=== PATIENT | female | born 1965 | race Caucasian/White ===

== ENCOUNTER 2022-01-29 18:27 | Emergency (ER) | payer OTHER, SELFPAY ==
[2022-01-29 18:39] VITALS: BP 116/69; PULSE 98; RESP 16; TEMP 37.3; O2SAT 98
--- NOTE | 2022-01-29 18:59 | ED.EAR ---
HPI - Ear Problem General Chief complaint: Ear Stated complaint: Ear pain Time Seen by Provider: 01/29/22 18:50 Source: patient, RN notes reviewed and old records reviewed Mode of arrival: ambulatory Limitations: no limitations History of Present Illness HPI Narrative: 56-year-old female who presents to [facility] care with complaints of some cough, right ear pain, some nasal congestion,she had her negative COVID yesterday she reports. Patient reports that she has been taking Ibuprofen for her discomfort rates her pain 6/10 and aching. Patient states history of some past ear infection. Location: right ear Duration: constant Severity: moderate Discharge from ear: Reports no Treatment prior to arrival: oral analgesic Related Data Home Medications Medication Instructions Recorded Confirmed atorvastatin 20 mg tablet 20 mg PO DAILY 01/29/22 01/29/22 cholecalciferol (vitamin D3) 125 125 mcg PO DAILY 01/29/22 01/29/22 mcg (5,000 unit) tablet (Vitamin D3) cyanocobalamin (vitamin B-12) 500 500 mcg PO DAILY 01/29/22 01/29/22 mcg tablet metformin 500 mg tablet,extended 1,000 mg PO DAILY 01/29/22 01/29/22 release 24 hr Allergies Allergy/AdvReac Type Severity Reaction Status Date / Time amitriptyline Allergy Unknown Rash Unverified 01/29/22 18:48 codeine Allergy Unknown Rash Unverified 01/29/22 18:48 morphine Allergy Unknown Vomiting Unverified 01/29/22 18:48 perphenazine Allergy Unknown Rash Unverified 01/29/22 18:48 Review of Systems Review of Systems: CONSTITUTIONAL: Denies malaise, chills, sweats, or fever. EYES: Denies visual changes, redness, or discharge. ENT: Reports rhinorrhea, congestion,no sinus pain, right ear otalgia and sore throat. CARDIOVASCULAR: Denies chest pain, palpitations, or edema. RESPIRATORY: Reports cough.? Denies dyspnea. GASTROINTESTINAL: Denies abdominal pain, nausea, vomiting, diarrhea SKIN: Denies rash or itching. MUSCULOSKELETAL: Denies myalgia. NEUROLOGIC: Denies headache. All systems reviewed & are unremarkable except as noted in HPI and below PMFSH Past Medical History Medical History (Updated 01/29/22 @ 20:14 by Ester Aldridge NP) Breast cancer Carpal tunnel syndrome on both sides Diabetes Hypertension Surgical History Surgical History (Updated 01/29/22 @ 20:17 by Ester Aldridge NP) H/O tubal ligation History of cholecystectomy History of parathyroidectomy Social History Social History (Updated 01/29/22 @ 20:16 by Ester Aldridge NP) Smoking status: Never smoker Alcohol intake: unknown Substance use: unknown Living arrangements: with family Gender identity (if verbalized by the patient): Female Comments At time of signature, agree with nursing past medical, surgical, social and family history. There is no relevant family history pertinent to the presenting complaint Exam Narrative: GENERAL: Well-appearing, well-nourished, and in no acute distress. HEAD: Normocephalic EYES: PERRLA, conjunctivae clear ENT: Nares clear, turbinates edematous and erythematous, clear discharge. Mucous membranes moist. Right TM red with ear canal red and excoriated,:Left TM normal with good light reflex; no tragal tenderness. Oropharynx erythematous without lesions. Tonsils not enlarged and without exudate, no drooling, no hoarseness, no trismus, uvula midline. NECK: Supple. No lymphadenopathy CHEST: Clear to auscultation, breath sounds equal. No wheezing, rhonchi, rales, or stridor. No respiratory distress, speaks in full sentences.SAO2 98% on room air HEART: Regular rate and rhythm. No murmur heard. SKIN: Warm, dry, no rash. NEURO: Alert and oriented x3. PSYCH: Normal mood and affect Course Course Emergency Course: Patient is aware of diagnosis, understands and agrees to treatment plan.? Anticipatory guidance given.? Patient agrees to follow-up as directed and is aware of reasons to seek care at the emergency department. Po
== END 2022-01-29 19:10 | disposition home or self-care (01) ==
PROVIDERS: Emergency Provider Registered Nurse
DX: H65.01 Acute serous otitis media, right ear (principal); H60.501 Unspecified acute noninfective otitis externa, right ear; E11.9 Type 2 diabetes mellitus without complications; I10 Essential (primary) hypertension; Z85.3 Personal history of malignant neoplasm of breast
CPT/HCPCS: 99203; G0463

== ENCOUNTER 2022-05-26 14:54 | Emergency (ER) | payer OTHER, SELFPAY ==
--- NOTE | 2022-05-26 14:56 | ED.URI ---
HPI - URI/Sore Throat General Chief Complaint: Upper Respiratory Infection Stated Complaint: throat ears and sinus Time Seen by Provider: 05/26/22 14:57 Source: patient and RN notes reviewed History of Present Illness HPI Narrative: Patient is a 56-year-old female who presents to the Urgent Care with complaints of sinus congestion, cough, sore throat, ear pain for the last 7 or 8 days. Patient states that the cough started yesterday. She has been taking Tylenol without any other [id number] medication for her symptoms. Denies any fevers or known exposures. Patient was treated with antibiotics and November, December and January. Patient has not followed up with an ENT. No other acute complaints. No acute distress noted. Patient aware of the plan of care. Some parts of this dictation were generated by voice recognition software and may contain typographical and/or grammatical inaccuracies. Related Data Home Medications Medication Instructions Recorded Confirmed atorvastatin 20 mg tablet 20 mg PO DAILY 01/29/22 05/26/22 cholecalciferol (vitamin D3) 125 125 mcg PO DAILY 01/29/22 05/26/22 mcg (5,000 unit) tablet (Vitamin D3) cyanocobalamin (vitamin B-12) 500 500 mcg PO DAILY 01/29/22 05/26/22 mcg tablet metformin 500 mg tablet,extended 1,000 mg PO DAILY 01/29/22 05/26/22 release 24 hr Allergies Allergy/AdvReac Type Severity Reaction Status Date / Time amitriptyline Allergy Unknown Rash Unverified 01/29/22 18:48 codeine Allergy Unknown Rash Unverified 01/29/22 18:48 morphine Allergy Unknown Vomiting Unverified 01/29/22 18:48 perphenazine Allergy Unknown Rash Unverified 01/29/22 18:48 adhesive tape Allergy Rash Verified 05/26/22 15:20 latex Allergy Rash Verified 05/26/22 15:20 amoxicillin [From Augmentin] AdvReac Diarrhea Verified 05/26/22 15:20 clavulanic acid AdvReac Diarrhea Verified 05/26/22 15:20 [From Augmentin] Review of Systems Review of Systems: CONSTITUTIONAL: Denies fever, chills, or sweats. EYES: Denies visual changes, redness, or discharge. ENT: Reports sinus congestion/pressure, otalgia, postnasal drainage CARDIOVASCULAR: Denies chest pain, palpitations, or edema. RESPIRATORY: reports of cough without dyspnea GASTROINTESTINAL: Denies abdominal pain, nausea, vomiting, or diarrhea. GENITOURINARY: Denies dysuria or hematuria. SKIN: Denies rash or itching. MUSCULOSKELETAL: Denies back pain, joint pain, or myalgia. NEUROLOGIC: Denies headache, numbness, or weakness. All other systems reviewed are negative, except as documented in HPI. [facility] Past Medical History Medical History (Updated 05/26/22 @ 15:28 by ZAY Ramos) Breast cancer Carpal tunnel syndrome on both sides Diabetes Hypertension Surgical History Surgical History (Updated 01/29/22 @ 20:17 by Ester Aldridge NP) H/O tubal ligation History of cholecystectomy History of parathyroidectomy Social History Social History (Updated 01/29/22 @ 20:16 by Ester Aldridge NP) Smoking status: Never smoker Alcohol intake: unknown Substance use: unknown Living arrangements: with family Gender identity (if verbalized by the patient): Female Comments At the time of my signature, I reviewed and agree with the nursing past medical, surgical, social, and family history. There is no relevant family history pertinent to the patient complaint. Exam Narrative: GENERAL: This is a well-nourished, well-developed patient, in no apparent distress. HEAD: normocephalic, atraumatic. frontal sinus tenderness EYES: PERRL. Sclera clear/white. Vision is grossly intact. EARS: External ears normal, auditory canals clear and without drainage, TMs normal without perforation. Hearing grossly intact. NOSE: External nose normal with no obvious nasal discharge, nares without redness, clear rhinorrhea. THROAT: Mucous membranes moist, posterior pharynx clear. mild postnasal drainage NECK: Neck supple, non-tender wit
[2022-05-26 15:06] VITALS: BP 112/57; PULSE 96; RESP 20; TEMP 37; O2SAT 97
== END 2022-05-26 16:00 | disposition home or self-care (01) ==
PROVIDERS: Emergency Provider Nurse Practitioner Family
DX: J32.9 Chronic sinusitis, unspecified (principal); E11.9 Type 2 diabetes mellitus without complications; I10 Essential (primary) hypertension; Z85.3 Personal history of malignant neoplasm of breast; Z79.84 Long term (current) use of oral hypoglycemic drugs
CPT/HCPCS: 87081; 87880; 99213; G0463

== ENCOUNTER 2022-08-24 08:54 | Emergency (ER) | payer MEDICARE, MEDICAID, SELFPAY ==
[2022-08-24 09:06] VITALS: BP 132/80; PULSE 110; RESP 20; TEMP 37.4; O2SAT 97
[2022-08-24 09:26] LABS: Glucose Point of Care 169 mg/dl (65-105)
--- NOTE | 2022-08-24 09:48 | ED.GENADULT ---
HPI - General Adult General Chief complaint: Urogenital-Female Stated complaint: poss uti Source: patient Mode of arrival: ambulatory Limitations: no limitations History of Present Illness HPI narrative: Patient presents for evaluation of urinary symptoms. Symptoms include urinary frequency and some suprapubic pressure. Symptom onset yesterday. She has a planned cataract surgery of the right eye and wants to ensure she does not have a urinary tract infection prior to the time of surgery. She denies any dysuria, hematuria, low back pain fever, chills, nausea, vomiting, vaginal bleeding or discharge.. She is diabetic. She is compliant with metformin Jardiance. Home blood sugars usually run in the 120s. Related Data Home Medications Medication Instructions Recorded Confirmed atorvastatin 20 mg tablet 20 mg PO DAILY 01/29/22 08/24/22 cholecalciferol (vitamin D3) 125 125 mcg PO DAILY 01/29/22 08/24/22 mcg (5,000 unit) tablet (Vitamin D3) cyanocobalamin (vitamin B-12) 500 500 mcg PO DAILY 01/29/22 08/24/22 mcg tablet metformin 500 mg tablet,extended 1,000 mg PO DAILY 01/29/22 08/24/22 release 24 hr ketorolac 0.5 % eye drops 1 drp ophthalmic (eye) DIRECTED 08/24/22 08/24/22 moxifloxacin 0.5 % eye drops 1 drp ophthalmic (eye) DIRECTED 08/24/22 08/24/22 prednisolone acetate 1 % eye 1 drp ophthalmic (eye) DIRECTED 08/24/22 08/24/22 drops,suspension Allergies Allergy/AdvReac Type Severity Reaction Status Date / Time amitriptyline Allergy Unknown Rash Verified 08/24/22 09:29 codeine Allergy Unknown Rash Verified 08/24/22 09:29 morphine Allergy Unknown Vomiting Verified 08/24/22 09:29 perphenazine Allergy Unknown Rash Verified 08/24/22 09:29 adhesive tape Allergy Rash Verified 08/24/22 09:29 latex Allergy Rash Verified 08/24/22 09:29 amoxicillin [From Augmentin] AdvReac Diarrhea Verified 08/24/22 09:29 clavulanic acid AdvReac Diarrhea Verified 08/24/22 09:29 [From Augmentin] Review of Systems Review of Systems: CONSTITUTIONAL: Denies fever, chills, or sweats. EYES: Denies visual changes, redness, or discharge. ENT: Denies rhinorrhea, congestion, sore throat, or otalgia. CARDIOVASCULAR: Denies chest pain, palpitations, or edema. RESPIRATORY: Denies cough or dyspnea. GASTROINTESTINAL: Denies abdominal pain, nausea, vomiting, or diarrhea. GENITOURINARY: Reports urinary frequency and suprapubic pressure. Denies hematuria, dysuria, vaginal bleeding or discharge. SKIN: Denies rash or itching. MUSCULOSKELETAL: Denies back pain, joint pain, or myalgia. NEUROLOGIC: Denies headache, numbness, dizziness, or weakness. PSYCHIATRIC: Denies anxiety or depression. [facility] Past Medical History Medical History (Updated 08/24/22 @ 10:05 by Ag Hector, LEAD GAME DESIGNER, ) Breast cancer Carpal tunnel syndrome on both sides Diabetes Hypertension Surgical History Surgical History H/O tubal ligation History of breast surgery History of cholecystectomy History of hysterectomy History of parathyroidectomy Family History Family History Mother Family history non-contributory Social History Social History Smoking status: Former smoker Alcohol intake: unknown Substance use: unknown Living arrangements: with family Gender identity (if verbalized by the patient): Female Spiritual care concerns: No Exam Narrative: GENERAL: Well-appearing, well-nourished, and in no acute distress. HEAD: Normocephalic, atraumatic. EYES: PERRLA and EOMI. ENT: Nares clear, no rhinorrhea or epistaxis. Mucous membranes moist. Oropharynx without tonsillar hypertrophy exudate or other lesions. Bilateral TMs pearly robles nonbulging NECK: Supple. No adenopathy or masses. No carotid bruits or JVD CHEST: Clear to auscultation. No respirator
== END 2022-08-24 09:49 | disposition home or self-care (01) ==
PROVIDERS: Emergency Provider Nurse Practitioner
DX: R35.0 Frequency of micturition (principal); Z87.891 Personal history of nicotine dependence; E11.9 Type 2 diabetes mellitus without complications; I10 Essential (primary) hypertension; Z85.3 Personal history of malignant neoplasm of breast; Z90.89 Acquired absence of other organs
CPT/HCPCS: 81003; 82948; 87086; 87088; 99213; G0463

== ENCOUNTER 2022-12-06 13:48 | Emergency (ER) | payer MEDICARE, MEDICAID, SELFPAY ==
[2022-12-06 13:54] VITALS: BP 112/69; PULSE 87; RESP 16; TEMP 36.6; O2SAT 97
--- NOTE | 2022-12-06 13:56 | ED.SKABFB ---
HPI - Skin/Abscess/Foreign Bdy General Stated complaint: Bee/Wasp Sting Right and Left Leg Source: patient and RN notes reviewed History of Present Illness HPI narrative: 57 yo F Presents to urgent care with complaints of 2 wasp stings to her calves. Pt states about an hour ago, a wasp stung both of her calves. Pt states her son made her come in b/c she is allergic to bees. Denies any SOB, chest pain, oral swelling, or vomiting. Pt has not taken anything for her stings. Related Data Home Medications Medication Instructions Recorded Confirmed atorvastatin 20 mg tablet 20 mg PO DAILY 01/29/22 08/24/22 cholecalciferol (vitamin D3) 125 125 mcg PO DAILY 01/29/22 08/24/22 mcg (5,000 unit) tablet (Vitamin D3) cyanocobalamin (vitamin B-12) 500 500 mcg PO DAILY 01/29/22 08/24/22 mcg tablet metformin 500 mg tablet,extended 1,000 mg PO DAILY 01/29/22 08/24/22 release 24 hr ketorolac 0.5 % eye drops 1 drp ophthalmic (eye) DIRECTED 08/24/22 08/24/22 moxifloxacin 0.5 % eye drops 1 drp ophthalmic (eye) DIRECTED 08/24/22 08/24/22 prednisolone acetate 1 % eye 1 drp ophthalmic (eye) DIRECTED 08/24/22 08/24/22 drops,suspension fluoxetine 40 mg capsule 40 mg PO DAILY 12/06/22 12/06/22 Allergies Allergy/AdvReac Type Severity Reaction Status Date / Time amitriptyline Allergy Unknown Rash Verified 12/06/22 13:54 codeine Allergy Unknown Rash Verified 12/06/22 13:54 morphine Allergy Unknown Vomiting Verified 12/06/22 13:54 perphenazine Allergy Unknown Rash Verified 12/06/22 13:54 adhesive tape Allergy Rash Verified 12/06/22 13:54 latex Allergy Rash Verified 12/06/22 13:54 amoxicillin [From Augmentin] AdvReac Diarrhea Verified 12/06/22 13:54 clavulanic acid AdvReac Diarrhea Verified 12/06/22 13:54 [From Augmentin] Review of Systems Review of Systems: CONSTITUTIONAL: Denies fever, chills, or sweats. EYES: Denies visual changes, redness, or discharge. ENT: Denies otalgia and sore throat CARDIOVASCULAR: Denies chest pain, palpitations, or edema. RESPIRATORY: Denies cough or dyspnea. GASTROINTESTINAL: Denies abdominal pain, nausea, vomiting, or diarrhea. GENITOURINARY: Denies dysuria or hematuria. SKIN: wasp stings MUSCULOSKELETAL: Denies back pain, joint pain, or myalgia. NEUROLOGIC: Denies headache, numbness, or weakness. Pertinent positives per HPI. [facility] Past Medical History Medical History (Updated 12/06/22 @ 14:11 by Soraya Champagne, DOCUMENTATION SPECIALIST) Breast cancer Carpal tunnel syndrome on both sides Diabetes Hypertension Surgical History Surgical History H/O tubal ligation History of breast surgery History of cholecystectomy History of hysterectomy History of parathyroidectomy Family History Family History Mother Family history non-contributory Social History Social History Smoking status: Former smoker Alcohol intake: unknown Substance use: unknown Living arrangements: with family Gender identity (if verbalized by the patient): Female Spiritual care concerns: No Comments At the time of my signature, I reviewed and agree with the nursing past medical, surgical, social, and family history. There is no relevant family history pertinent to the patient complaint. Exam Narrative: GENERAL: This is a well-nourished, well-developed patient, in no apparent distress. HEAD: normocephalic, atraumatic. EYES: Sclera clear/white. Vision is grossly intact. EARS: External ears normal, auditory canals clear and without drainage. Hearing grossly intact. NOSE: External nose normal with no obvious nasal discharge, nares without redness, no rhinorrhea. THROAT: Mucous membranes moist, posterior pharynx clear. NECK: Neck supple, non-tender without lymphadenopathy, masses or thyromegaly. CARDIOVASCULAR: Regular rate a
[2022-12-06] MEDS: diphenhydrAMINE HCl CAP 25 MG CAPSULE PO (14:13)
[2022-12-06 14:32] VITALS: BP 112/69; PULSE 87; RESP 16; TEMP 36.6; O2SAT 97
== END 2022-12-06 14:25 | disposition home or self-care (01) ==
PROVIDERS: Emergency Provider Nurse Practitioner Family
DX: T63.461A Toxic effect of venom of wasps, accidental (unintentional), initial encounter (principal); Z87.891 Personal history of nicotine dependence; E11.9 Type 2 diabetes mellitus without complications; I10 Essential (primary) hypertension; Z85.3 Personal history of malignant neoplasm of breast; Z79.84 Long term (current) use of oral hypoglycemic drugs
CPT/HCPCS: 99213; A9270; G0463

== ENCOUNTER 2023-04-06 09:23 | Emergency (ER) | payer MEDICARE, MEDICAID, SELFPAY ==
[2023-04-06 10:06] VITALS: BP 129/74; PULSE 85; RESP 20; TEMP 37; O2SAT 98
--- NOTE | 2023-04-06 10:38 | ED.GENADULT ---
HPI - General Adult General Chief complaint: Upper Respiratory Infection Stated complaint: Sore Throat, Earache, Congestion Source: patient, RN notes reviewed and old records reviewed Mode of arrival: ambulatory Limitations: no limitations History of Present Illness HPI narrative: 47-year-old female presents to [facility] with complaint of cough, congestion, body aches that started 3-4 days ago. Patient states son has COVID. Patient denies shortness of breath, chest pain, weakness, dizziness, vomiting, fevers. Related Data Home Medications Medication Instructions Recorded Confirmed atorvastatin 20 mg tablet 20 mg PO DAILY 01/29/22 04/06/23 cholecalciferol (vitamin D3) 125 125 mcg PO DAILY 01/29/22 04/06/23 mcg (5,000 unit) tablet (Vitamin D3) cyanocobalamin (vitamin B-12) 500 500 mcg PO DAILY 01/29/22 04/06/23 mcg tablet metformin 500 mg tablet,extended 1,000 mg PO DAILY 01/29/22 04/06/23 release 24 hr fluoxetine 40 mg capsule 40 mg PO DAILY 12/06/22 04/06/23 Allergies Allergy/AdvReac Type Severity Reaction Status Date / Time amitriptyline Allergy Unknown Rash Verified 04/06/23 10:21 codeine Allergy Unknown Rash Verified 04/06/23 10:21 morphine Allergy Unknown Vomiting Verified 04/06/23 10:21 perphenazine Allergy Unknown Rash Verified 04/06/23 10:21 adhesive tape Allergy Rash Verified 04/06/23 10:21 latex Allergy Rash Verified 04/06/23 10:21 amoxicillin [From Augmentin] AdvReac Diarrhea Verified 04/06/23 10:21 clavulanic acid AdvReac Diarrhea Verified 04/06/23 10:21 [From Augmentin] Review of Systems Constitutional: Constitutional: Reports no additional constitutional complaints, Denies body ache(s), Denies chills, Denies fatigue, Denies fever(s) and Denies headache(s) Eyes: Eyes: Reports no additional eye complaints and Denies blurry vision ENT: Reports as per HPI, Denies vertigo, Denies dizziness, Denies ear discharge, Denies otalgia, Denies facial pain, Denies headache(s), Reports nasal congestion, Reports nasal discharge, Denies sinus pain, Denies sinus pressure and Denies sore throat Cardiovascular: Cardiovascular: Reports no additional cardiovascular complaints, Denies chest pain, Denies chest pain at rest, Denies rapid heart rate and Denies dyspnea Respiratory: Respiratory: Reports no additional respiratory complaints, Reports chest congestion, Reports cough, Denies pain on inspiration, Denies pain with cough and Denies dyspnea Gastrointestinal: Gastrointestinal: Denies abdominal pain, Denies diarrhea, Denies nausea and Denies vomiting Integumentary/Breasts: Skin/Breast: Denies rash Neurologic: Reports system reviewed and no additional complaints, except as documented, Denies vertigo, Denies dizziness and Denies headache(s) Endocrine: Endocrine: Denies fatigue PMFSH Past Medical History Medical History Breast cancer Carpal tunnel syndrome on both sides Diabetes Hypertension Surgical History Surgical History H/O tubal ligation History of breast surgery History of cholecystectomy History of hysterectomy History of parathyroidectomy Family History Family History Mother Family history non-contributory Social History Social History Smoking status: Former smoker Alcohol intake: unknown Substance use: unknown Living arrangements: with family Gender identity (if verbalized by the patient): Female Spiritual care concerns: No Comments At the time of my signature, I reviewed and agree with the nursing past medical, surgical, social, and family history. There is no relevant family history pertinent to the patient complaint. Exam Const: General: cooperative, healthy appearing, no acute distress and well nourished Nutritional Appearance: well n
== END 2023-04-06 10:42 | disposition home or self-care (01) ==
PROVIDERS: Emergency Provider Registered Nurse
DX: B34.9 Viral infection, unspecified (principal); E11.9 Type 2 diabetes mellitus without complications; I10 Essential (primary) hypertension; Z85.3 Personal history of malignant neoplasm of breast; Z79.899 Other long term (current) drug therapy; Z87.891 Personal history of nicotine dependence; Z20.822 Contact with and (suspected) exposure to COVID-19
CPT/HCPCS: 87426; 87804; 99213; C9803; G0463

== ENCOUNTER 2024-02-02 14:13 | Emergency (ER) | payer MEDICARE, MEDICAID, SELFPAY ==
[2024-02-02 14:24] VITALS: BP 125/64; PULSE 110; RESP 20; TEMP 37.4; O2SAT 99
--- NOTE | 2024-02-02 14:41 | ED.URI ---
HPI - URI/Sore Throat General Chief Complaint: Upper Respiratory Infection Stated Complaint: cough/fever/sinus pressure Source: patient and RN notes reviewed Mode of arrival: ambulatory Limitations: no limitations History of Present Illness HPI Narrative: 58 y/o female with hx DM and HTN presented for c/o cough and nasal congestion and pressure for 3 days. Reports fever at home. Taking mucinex, tylenol and robitussin. Denies associated sob, wheezing, lethargy, n/v/d. MD elicited complaint: cough Related Data Home Medications Medication Instructions Recorded Confirmed atorvastatin 20 mg tablet 20 mg PO DAILY 01/29/22 02/02/24 cholecalciferol (vitamin D3) 125 125 mcg PO DAILY 01/29/22 04/06/23 mcg (5,000 unit) tablet (Vitamin D3) cyanocobalamin (vitamin B-12) 500 500 mcg PO DAILY 01/29/22 02/02/24 mcg tablet metformin 500 mg tablet,extended 1,000 mg PO DAILY 01/29/22 04/06/23 release 24 hr fluoxetine 40 mg capsule 40 mg PO DAILY 12/06/22 04/06/23 empagliflozin 25 mg tablet 25 mg PO DAILY 02/02/24 02/02/24 (Jardiance) gabapentin 100 mg capsule 100 mg PO QHS 02/02/24 02/02/24 Allergies Allergy/AdvReac Type Severity Reaction Status Date / Time amitriptyline Allergy Unknown Rash Verified 02/02/24 15:09 codeine Allergy Unknown Rash Verified 02/02/24 15:09 morphine Allergy Unknown Vomiting Verified 02/02/24 15:09 perphenazine Allergy Unknown Rash Verified 02/02/24 15:09 adhesive tape Allergy Rash Verified 02/02/24 15:09 latex Allergy Rash Verified 02/02/24 15:09 amoxicillin [From Augmentin] AdvReac Diarrhea Verified 02/02/24 15:09 clavulanic acid AdvReac Diarrhea Verified 02/02/24 15:09 [From Augmentin] Review of Systems Review of Systems: CONSTITUTIONAL: Endorses fever Denies myalgias EYES: Denies visual changes, redness, or discharge ENT: Reports rhinorrhea, congestion, sinus pain, otalgia, denies sore throat CARDIOVASCULAR: Denies chest pain, palpitations, edema RESPIRATORY: Reports cough, post nasal drainage. Denies dyspnea GASTROINTESTINAL: Denies abdominal pain, nausea, vomiting, diarrhea NEUROLOGIC: Denies headache PMF Past Medical History Medical History Breast cancer Carpal tunnel syndrome on both sides Diabetes Hypertension Surgical History Surgical History H/O tubal ligation History of breast surgery History of cholecystectomy History of hysterectomy History of parathyroidectomy Family History Family History Mother Family history non-contributory Social History Social History Smoking status: Former smoker Alcohol intake: unknown Substance use: unknown Living arrangements: with family Gender identity (if verbalized by the patient): Female Spiritual care concerns: No Exam Narrative: GENERAL: well-appearing, nontoxic EYES: conjunctivae clear ENT: Mucous membranes moist. TMs pearly robles with dull light reflex and clear effusion bilaterally; no tragal tenderness. Oropharynx not erythematous without lesions or exudate, no drooling, no hoarseness, no trismus, uvula midline. CHEST: Clear to auscultation, breath sounds equal. No wheezing, rhonchi, rales, or stridor. No respiratory distress, speaks in full sentences. HEART: Regular rate and rhythm. No murmur heard. SKIN: Warm, dry, no rash. NEURO: Alert and oriented x3. PSYCH: Normal mood and affect Course Course Emergency Course: Patient is aware of diagnosis, understands and agrees to treatment plan. Anticipatory guidance given. Patient agrees to follow-up as directed and is aware of reasons to seek care at the emergency department. Portions of this record may have been created with voice recognition software Level of Care: Express Care Visit Vital Signs Vital signs: Vital
[2024-02-02 15:15] LABS: EDCOVIDSCREEN Negative (Negative); EDINFLUASCREEN Negative (Negative); EDINFLUBSCREEN Negative (Negative)
== END 2024-02-02 15:13 | disposition home or self-care (01) ==
PROVIDERS: Emergency Provider Nurse Practitioner Family
DX: J06.9 Acute upper respiratory infection, unspecified (principal); Z20.822 Contact with and (suspected) exposure to COVID-19; E11.9 Type 2 diabetes mellitus without complications; Z79.84 Long term (current) use of oral hypoglycemic drugs; I10 Essential (primary) hypertension; Z85.3 Personal history of malignant neoplasm of breast; Z87.891 Personal history of nicotine dependence
CPT/HCPCS: 87426; 87804; 99213; G0463